=== PATIENT | male | born 1970 | race Caucasian/White ===

== ENCOUNTER 2020-07-12 12:48 | Emergency (ER) | payer BC ==
[2020-07-12] MEDS ORDERED: Tetracaine HCl/PF 0.5% 4 ML Bottle ONE (12:55)
[2020-07-12] MEDS ORDERED: Ondansetron 4 MG/2 ML SDV IVPUSH ONE (13:10)
[2020-07-12] MEDS ORDERED: HYDROmorphone 1 MG/ML Syringe IVPUSH ONE (13:10)
[2020-07-12] MEDS ORDERED: Sodium Chloride 0.9% 10 ML Syringe FLUSH PRN (13:14)
[2020-07-12] MEDS ORDERED: Sodium Chloride 0.9% 500 ML IV SCH ×2 (13:15)
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
[2020-07-12] MEDS ORDERED: Diphtheria,Pertussis(Acell),Tetanus Vaccine 0.5 ML SDV IM ONE (13:31)
[2020-07-12] MEDS ORDERED: Tetracaine HCl/PF 0.5% 4 ML Bottle EYEBOTH ONE (13:37)
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
== END 2020-07-12 14:30 ==
LOC: KA.ED 12:48
DX: S05.52XA Penetrating wound with foreign body of left eyeball, initial encounter (principal); S05.51XA Penetrating wound with foreign body of right eyeball, initial encounter; S00.81XA Abrasion of other part of head, initial encounter; Z23 Encounter for immunization; W37.8XXA Explosion and rupture of other pressurized tire, pipe or hose, initial encounter
CPT/HCPCS: 70486; 90471; 90715; 96374; 96375; 99283; 99284-25; J1170; J2405; J7040